=== PATIENT | female | born 1960 | race Two or more races ===

== ENCOUNTER → 2025-03-17 | Outpatient (CLI) | payer BC, SELFPAY ==
[2025-03-17 13:29] LABS: C-Reactive Protein < 0.5 mg/dL (0.0-0.9); Uric Acid 5.3 mg/dL (3.1-7.8)
[2025-03-17 13:32] LABS: Sed Rate (ESR) 43 mm/hr (0-30)
[2025-03-25 07:02] LABS: ANA Screen, IFA POSITIVE (NEGATIVE)
[2025-03-25 07:03] LABS: ANA Pattern NUCLEAR, NUCLEOLAR; ANA Titer 1:40 titer
== END | disposition home or self-care (01) ==
LOC: COPL 12:33
PROVIDERS: PCP Family Medicine; Referring Provider Family Medicine; Visit Provider Family Medicine
DX: G90.9 Disorder of the autonomic nervous system, unspecified (principal)
CPT/HCPCS: 36415; 84550; 85652; 86038; 86140

== ENCOUNTER → 2025-06-09 | Outpatient (CLI) | payer BC, SELFPAY ==
[2025-06-09 17:55] LABS: Glucose Estimated Average 137 mg/dL (80-131); Hemoglobin A1C 6.4 % Hgb (4.8-6.0)
[2025-06-09 18:02] LABS: Albumin, Serum 4.7 gm/dL (3.4-4.8); Anion Gap 15 (7-16); BUN/Creatinine Ratio 16 Ratio (12-20); Blood Urea Nitrogen 14 mg/dL (9-23); Calcium 9.5 mg/dL (8.3-10.6); Calcium (Corrected) 9.5 mg/dL (8.5-10.1); Carbon Dioxide 21.7 mMol/L (20.0-31.0); Chloride 101 mMol/L (98-107); Creatinine (Component) 0.9 mg/dL (0.6-1.3); Glucose 219 mg/dL (74-106); Osmolality,Calculated 283 (275-295); Phosphorous 2.7 mg/dL (2.4-5.1); Sodium 138 mMol/L (136-145); eGFR > 60 See Note
[2025-06-09 18:03] LABS: Potassium 2.8 mMol/L (3.4-5.1)
== END | disposition home or self-care (01) ==
LOC: COPL 16:07
PROVIDERS: PCP Family Medicine; Referring Provider Family Medicine; Visit Provider Family Medicine
DX: E11.65 Type 2 diabetes mellitus with hyperglycemia (principal)
CPT/HCPCS: 36415; 80069; 83036

== ENCOUNTER → 2025-07-14 | Outpatient (CLI) | payer BC, SELFPAY ==
[2025-07-14 14:00] LABS: Glucose Estimated Average 131 mg/dL (80-131); Hemoglobin A1C 6.2 % Hgb (4.8-6.0)
[2025-07-14 14:11] LABS: Alanine Aminotransferase 27 U/L (10-49); Albumin, Serum 4.9 gm/dL (3.4-4.8); Albumin/Globulin Ratio 1.5 (1.2-2.2); Alkaline Phosphatase 106 U/L (46-116); Anion Gap 12 (7-16); Aspartate Amino Transferase 33 U/L (0-34); BUN/Creatinine Ratio 14 Ratio (12-20); Bilirubin,Direct 0.2 mg/dL (0.0-0.3); Bilirubin,Total 0.5 mg/dL (0.3-1.2); Blood Urea Nitrogen 10 mg/dL (9-23); Calcium 10.6 mg/dL (8.3-10.6); Calcium (Corrected) 10.6 mg/dL (8.5-10.1); Carbon Dioxide 22.2 mMol/L (20.0-31.0); Chloride 100 mMol/L (98-107); Creatinine (Component) 0.7 mg/dL (0.6-1.3); Globulin 3.2 gm/dL (2.3-3.5); Glucose 103 mg/dL (74-106); Osmolality,Calculated 267 (275-295); Sodium 134 mMol/L (136-145); Total Protein 8.1 gm/dL (5.7-8.2); eGFR > 60 See Note
[2025-07-14 14:24] LABS: Potassium 2.7 mMol/L (3.4-5.1)
[2025-07-14 14:56] LABS: Creatinine MALB Rnd Ur 15 mg/dL (30-125); Microalbumin, Random Urine < 3 mg/L (0-300)
== END | disposition home or self-care (01) ==
LOC: COPL 12:47
PROVIDERS: PCP Family Medicine; Referring Provider Family Medicine; Visit Provider Family Medicine
DX: E11.65 Type 2 diabetes mellitus with hyperglycemia (principal); E78.1 Pure hyperglyceridemia
CPT/HCPCS: 36415; 80053; 82043; 82248; 82570; 83036

== ENCOUNTER → 2025-07-28 | Outpatient (CLI) | payer BC, SELFPAY ==
[2025-07-28 13:22] LABS: Albumin, Serum 4.7 gm/dL (3.4-4.8); Anion Gap 12 (7-16); BUN/Creatinine Ratio 12 Ratio (12-20); Blood Urea Nitrogen 7 mg/dL (9-23); Calcium 10.3 mg/dL (8.3-10.6); Calcium (Corrected) 10.3 mg/dL (8.5-10.1); Carbon Dioxide 26.5 mMol/L (20.0-31.0); Chloride 100 mMol/L (98-107); Creatinine (Component) 0.6 mg/dL (0.6-1.3); Glucose 83 mg/dL (74-106); Osmolality,Calculated 272 (275-295); Phosphorous 2.8 mg/dL (2.4-5.1); Potassium 3.2 mMol/L (3.4-5.1); Sodium 138 mMol/L (136-145); eGFR > 60 See Note
== END | disposition home or self-care (01) ==
LOC: COPL 12:13
PROVIDERS: PCP Family Medicine; Referring Provider Family Medicine; Visit Provider Family Medicine
DX: Z13.1 Encounter for screening for diabetes mellitus (principal)
CPT/HCPCS: 36415; 80069

== ENCOUNTER → 2025-10-01 | Outpatient (CLI) | payer OTHER, SELFPAY ==
--- NOTE | 2025-10-01 13:00 | XR_ITS ---
Examination: Breast ultrasound complete, bilateral Date and time of exam: October 31, 2025, 1307 hours INDICATIONS: Right breast pain beginning 1 month ago Technique: Real-time grayscale ultrasonographic imaging bilateral breasts, including all 4 quadrants as well as nipple retroareolar and axillary regions. Findings: Sonographic images right breast No cystic or solid mass 11 mm right axillary lymph node and multiple smaller nodes Sonographic images left breast 7:00 nodule lobular margins 4 x 4 mm IMPRESSION: BI-RADS Category 3: Probably benign findings Recommend 6-month continued follow-up to document stability of multiple right axillary lymph nodes and continued stability of the 7:00 nodule left breast
--- NOTE | 2025-10-01 14:00 | XR_ITS ---
Examination: Diagnostic digital mammography, bilateral Computer aided detection 3-D breast Tomosynthesis, bilateral Date and time of exam: October 01, 2025, 1335 hours INDICATIONS: Right breast pain beginning 1 month ago Technique: Nonmagnified MLO, CC views of the breasts to been obtained, reconstructed from 3-D Tomosynthesis images. R2 computer aided detection program utilized for evaluation of suspicious masses and/or abnormal calcifications. 3-D Tomosynthesis images obtained. Findings: The breasts are heterogeneously dense, which may obscure small masses 14 mm nodule inner upper left breast mid to anterior depth Impression: BI-RADS Category 0: Incomplete: Needs additional imaging evaluation Recommend follow-up spot tomographic views of 14 mm nodule indistinct margins upper outer left breast mid to anterior depth as well as bilateral breast sonography to complete .
== END | disposition home or self-care (01) ==
LOC: CDIM 12:33
PROVIDERS: PCP Family Medicine; Referring Provider Family Medicine; Visit Provider Family Medicine
DX: N63.21 Unspecified lump in the left breast, upper outer quadrant (principal); N63.24 Unspecified lump in the left breast, lower inner quadrant
CPT/HCPCS: 76641; 77062; 77066; G0279

== ENCOUNTER → 2025-11-05 | Outpatient (CLI) | payer OTHER, SELFPAY ==
--- NOTE | 2025-11-05 08:00 | XR_ITS ---
Examination: Breast ultrasound complete, bilateral Date and time of exam: November 05, 2025, 0741 hours INDICATIONS: Mammogram October 01, 2000 2514 mm nodule inner upper left breast Technique: Real-time grayscale ultrasonographic imaging bilateral breasts, including all 4 quadrants as well as nipple retroareolar and axillary regions. Findings: Sonographic images right breast No cystic or solid mass 13 mm axillary lymph node Sonographic images left breast 7:00 nodule 5 x 5 mm, nodular margins IMPRESSION: BI-RADS Category 3: Probably benign findings Recommend 1 additional 6-month left breast sonogram follow-up to document stability of 7:00 nodule described above
--- NOTE | 2025-11-05 09:00 | XR_ITS ---
Examination: Diagnostic digital mammography, unilateral, left Computer aided detection 3-D breast Tomosynthesis, unilateral Date and time of exam: November 05, 2025, 0758 hours INDICATIONS: 14 mm nodule indistinct margins upper outer left breast on mammogram October 01, 2025 Technique: Nonmagnified MLO, CC views of the left breast have been obtained, reconstructed from 3-D Tomosynthesis images. R2 computer aided detection program utilized for evaluation of suspicious masses and/or abnormal calcifications. 3-D Tomosynthesis images obtained. Findings: The breast is heterogeneously dense, which may obscure small masses Focal asymmetry remains 14 mm in the inner left breast, most nipple level on the current spot compression views Impression: BI-RADS category 3: Probably benign findings Recommend 6-month continued left mammogram follow-up
== END | disposition home or self-care (01) ==
PROVIDERS: PCP Family Medicine; Referring Provider Family Medicine; Visit Provider Family Medicine
DX: R92.332 Mammographic heterogeneous density, left breast (principal); N63.24 Unspecified lump in the left breast, lower inner quadrant
CPT/HCPCS: 76641; 77061; 77065; G0279